=== PATIENT | male | born 1970 | race Caucasian/White ===

== ENCOUNTER 2018-03-22 07:00 | Day surgery (SDC) | payer OTHER ==
[2018-03-21 13:37] LABS: BASOPHILS 0.6 % (0-2); EOSINOPHILS 3.2 % (0-7); HEMATOCRIT 42.8 % (42.0-54.0); HEMOGLOBIN 14.9 g/dL (13.5-17.5); IMMATURE GRANULOCYTES 0.2 % (0-5); LYMPHOCYTES 29.5 % (15-50); MCH 32.7 pg (26.0-34.0); MCHC 34.8 g/dL (31.0-37.0); MCV 94.1 fL (80.0-100.0); MEAN PLATELET VOLUME 10.5 fL (7.4-10.4); MONOCYTES 10.6 % (2-11); NEUTROPHILS 55.9 % (40-80); PLATELET COUNT 255 10x3/uL (130-400); RBC 4.55 10x6/uL (4.20-6.10); RDW 12.8 % (11.5-14.5); WBC 6.2 10x3/uL (4.8-10.8)
[2018-03-21 13:41] LABS: CALC OSMOLALITY 276 mosm/kg (275-300); CALCIUM 9.1 mg/dL (8.5-10.1); CARBON DIOXIDE 28.5 mmol/L (21.0-32.0); CHLORIDE - SERUM 102 mmol/L (98-107); CREATININE - SERUM 1.1 mg/dL (0.6-1.3); GLUCOSE 91 mg/dL (74-106); POTASSIUM - SERUM 4.2 mmol/L (3.5-5.1); SODIUM 138 mmol/L (136-145); UREA NITROGEN 14 mg/dL (7-18); eGFR NON AFRICAN AMERICAN 75 mL/min (90-120)
[~2018-03-22] VITALS: Ht 182.9 cm; Wt 90.7 kg
[~2018-03-22 07:00] MED LIST: MULTIPLE VITAMI1 TA1 PO; PROBIOTIC1 EAC1 PO; PROTONIX20 MG PO; SYNTHROID175 MCG PO
[2018-03-22 08:03] VITALS: BP 148/88; Ht 182.9 cm; Wt 90.7 kg
[2018-03-22] MEDS ORDERED: DILAUDID2 MG PO (10:46)
--- NOTE | 2018-03-22 12:50 | NUR ---
PIV DC'D WITH TIP INTACT. DISCHARGE INSTRUCTIONS REVIEWED WITH PATIENT, DISCHARGED HOME VIA WHEELCHAIR TO PRIVATE VEHICLE WITH FAMILY MEMBER
--- NOTE | 2018-03-25 17:55 | OP ---
PATIENT NAME: MICHELE PAGAN MEDICAL RECORD: [id number] :66 LOCATION:D.OPS ADMISSION DATE: SURGEON: PATRICK WAY MD DATE OF OPERATION: 03/22/2018 PREOPERATIVE DIAGNOSES: 1. Left inguinal hernia. 2. Hypothyroidism. POSTOPERATIVE DIAGNOSES: 1. Left inguinal hernia. 2. Hypothyroidism. PROCEDURE: Left inguinal hernia repair with medium PHS mesh. SURGEON: Patrick Way MD REPORT OF PROCEDURE: The patient's abdomen was prepped and draped in sterile fashion. An oblique incision was made in the left inguinal region and electrocautery was used to dissect through the subcutaneous tissues. We encountered the external oblique fascia and this was opened up to the external ring using electrocautery. At this point, the spermatic cord was elevated and a [place] was placed around it. The patient had a large indirect hernia defect. This was freed up from the spermatic cord and then placed back into the abdominal cavity. An opening was made in the inguinal floor and the preperitoneal space of Retzius was opened up in all directions. A medium PHS mesh was then inserted and sutured down on all 4 sides using multiple interrupted 0 Vicryls. The patient's ilioinguinal nerves were found and high ligated. At this point, the wound was irrigated out with normal saline and care was taken to assure there was no sign of any bleeding. At this point, the external oblique fascia was closed with running 2-0 Vicryl, Christian's was closed with interrupted 3-0 Vicryl and the skin was closed with running subcutaneous 5-0 Monocryl. A total of 10 mL of 0.25% Marcaine with epinephrine was infused into the surrounding tissues. The wound was dressed appropriately. COMPLICATIONS: None. CONDITION: Stable. ANESTHESIA: General endotracheal and local. BLOOD LOSS: Minimal. 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
== END 2018-03-22 12:50 | disposition home or self-care (01) ==
LOC: D.OPS 07:00
PROVIDERS: Surgery
DX: K40.90 Unilateral inguinal hernia, without obstruction or gangrene, not specified as recurrent (principal); E03.9 Hypothyroidism, unspecified; Z01.812 Encounter for preprocedural laboratory examination